=== PATIENT | male | born 1990 | race Caucasian/White ===

== ENCOUNTER 2017-11-05 09:31 | Emergency (ER) | payer SELFPAY ==
--- NOTE | 2017-11-05 09:32 | EDM.PDOC ---
ED HPI GENERAL MEDICAL PROBLEM - General Chief Complaint: Flank Pain Stated Complaint: IN BY AMBULANCE Time Seen by Provider: 11/05/17 09:31 Source of Information: Reports: Patient, EMS, EMS Notes Reviewed, [employer]icker, RN Notes Reviewed History Limitations: Reports: No Limitations - History of Present Illness INITIAL COMMENTS - FREE TEXT/NARRATIVE: Patient presents to ER per [facility] with complaint of left flank pain. Patient states he took 16 (triple C's) last night. Pain began last night left flank. Patient states more of a panic attack than pain. Onset Date: 11/04/17 Duration: Getting Worse Location: Reports: Generalized Quality: Reports: Ache Severity: Severe Improves with: Reports: None Worsens with: Reports: None Associated Symptoms: Reports: No Other Symptoms - Related Data Allergies Allergy/AdvReac Type Severity Reaction Status Date / Time No Known Allergies Allergy Verified 11/05/17 09:35 Home Meds: Home Meds Ibuprofen 1 - 2 tab PO Q6H PRN 03/05/15 [History] Past Medical History - Past Health History Medical/Surgical History: Denies Medical/Surgical History Other Genitourinary History: Patient c/o injury to penis. Social & Family History - Family History Family Medical History: Noncontributory - Tobacco Use Smoking Status *Q: Current Every Day Smoker Years of Tobacco use: 16 Packs/Tins Daily: 1 Second Hand Smoke Exposure: Yes - Alcohol Use Alcohol Use History: No - Recreational Drug Use Recreational Drug Use: Yes Recreational Drug Type: Reports: Marijuana/Hashish ED ROS GENERAL - Review of Systems Review Of Systems: ROS reveals no pertinent complaints other than HPI. ED EXAM, RENAL/ - Physical Exam Exam: See Below Exam Limited By: No Limitations General Appearance: Anxious Eye Exam: Bilateral Eye: Normal Inspection, PERRL (6 and sluggish) Ears: Normal External Exam, Normal Canal, Hearing Grossly Normal, Normal TMs Nose: Normal Inspection, Normal Mucosa, No Blood Throat/Mouth: Normal Inspection, Normal Lips, Normal Teeth, Normal Gums, Normal Oropharynx, Normal Voice, No Airway Compromise Head: Atraumatic, Normocephalic Neck: Normal Inspection, Supple, Non-Tender, Full Range of Motion Respiratory/Chest: No Respiratory Distress, Lungs Clear, Normal Breath Sounds, No Accessory Muscle Use, Chest Non-Tender Cardiovascular: Normal Peripheral Pulses, Regular Rate, Rhythm, No Edema, No Gallop, No JVD, No Murmur, No Rub GI/Abdominal: Normal Bowel Sounds, Soft, Non-Tender, No Organomegaly, No Distention, No Abnormal Bruit, No Mass (Male) Exam: Deferred Rectal (Males) Exam: Deferred Back Exam: Normal Inspection, Full Range of Motion, NT Extremities: Normal Inspection, Normal Range of Motion, Non-Tender, Normal Capillary Refill, No Pedal Edema Neurological: Alert, Oriented Psychiatric: Anxious Skin Exam: Other (tattoos) Lymphatic: No Adenopathy EKG INTERPRETATION EKG Date: 11/05/17 Time: 10:07 Rate (Beats/Min): 99 EKG Interpretation Comments: EKG on 11/05/2017 shows sinus rhythm and borderline prolonged QT interval. Course - Vital Signs Last Recorded V/S: Last Vital Signs Temp 98 F 11/05/17 09:39 Pulse 124 H 11/05/17 09:39 Resp 20 11/05/17 09:39 BP 135/87 11/05/17 09:39 Pulse Ox 96 11/05/17 09:39 - Orders/Labs/Meds Orders: Active Orders 24 hr Category Date Time Status EKG Documentation Completion [RC] STAT Care 11/05/17 10:01 Active Peripheral IV Care [RC] . DIRECTED Care 11/05/17 09:43 Active DRUG SCREEN URINE BIORAD [URCHEM] Stat Lab 11/05/17 11:00 Ordered UA W/MICROSCOPIC [URIN] Stat Lab 11/05/17 11:00 Ordered Sodium Chloride 0.9% [Saline Flush] Med 11/05/17 09:43 Active 10 ml FLUSH ASDIRECTED PRN Peripheral IV Insertion Adult [OM.PC] Stat Oth 11/05/17 09:42 Ordered Medication Orders Sodium Chloride (Saline Flush) 10 ml FLUSH ASDIRECTED PRN PRN Reason: Keep Vein Open Last Admin: 11/05/17 09:58 Dose: 10 ml Labs: Laboratory Tests 11/05/17 11/05/17 11/05/17 Range/Units 09:49 09:49 09:49 WBC 8.1 (5.0-10.0) 10^3/uL RBC 5.38 (4.6-6.2) 10^6/uL Hgb 16.2 (14.0-18.0) g/dL Hct 47.9 (40.0-54.0) % MCV 89.0 (80-100) fL MCH 30.1 (27.0-34.0) pg MCHC 33.8 (33.0-35.0) g/dL Plt Count 188 (150-450) 10^3/uL Neut % (Auto) 66.5 (42.2-75.2) % Lymph % (Auto) 21.4 (20.5-50.1) % [place] % (Auto) 11.4 H (2-8) % Eos % (Auto) 0.5 L (1.0-3.0) % Baso % (Auto) 0.2 (0.0-1.0) % Sodium 134 L (135-145) mmol/L Potassium 4.1 (3.6-5.0) mmol/L Chloride 101 (101-111) mmol/L Carbon Dioxide 25.0 (21.0-31.0) mmol/L Anion Gap 12.1 BUN 7 (7-18) mg/dL Creatinine 0.9 (0.6-1.3) mg/dL Est Cr Clr Drug Dosing 148.66 mL/min Estimated GFR (MDRD) > 60 BUN/Creatinine Ratio 7.77 Glucose 130 H (74-105) mg/dL Calcium 9.1 (8.4-10.2) mg/dl Total Bilirubin 1.1 H (0.2-1.0) mg/dL AST 24 (10-42) IU/L ALT 18 (10-60) IU/L Alkaline Phosphatase 63 (42-121) IU/L Troponin I < 0.02 (0.00-0.02) ng/ml Total Protein 7.6 (6.7-8.2) g/dl Albumin 4.6 (3.2-5.5) g/dl Globulin 3.0 Albumin/Globulin Ratio 1.53 Urine Color (YELLOW) Urine Appearance (CLEAR) Urine pH (5.0-9.0) Ur Specific [place] (1.005-1.030) Urine Protein (NEGATIVE) Urine Glucose (UA) (NEGATIVE) Urine Ketones (NEGATIVE) Urine Occult Blood (NEGATIVE) Urine Nitrite (NEGATIVE) Urine Bilirubin (NEGATIVE) Urine Urobilinogen (0.2-1.0) mg/dL Ur Leukocyte Esterase (NEGATIVE) Urine RBC /HPF Urine WBC (0-5/HPF) /HPF Ur Epithelial Cells /HPF Urine Bacteria (0-FEW/HPF) /HPF Urine Opiates Screen (NEGATIVE) Ur Oxycodone Screen (NEGATIVE) Urine Methadone Screen (NEGATIVE) Ur Barbiturates Screen (NEGATIVE) U Tricyclic Antidepress (NEGATIVE) Ur Phencyclidine Scrn (NEGATIVE) Ur Amphetamine Screen (NEGATIVE) U Methamphetamines Scrn (NEGATIVE) Urine MDMA Screen (NEGATIVE) U Benzodiazepines Scrn (NEGATIVE) Urine Cocaine Screen (NEGATIVE) U Marijuana (THC) Screen (NEGATIVE) Ethyl Alcohol < 5 mg/dL 11/05/17 11/05/17 Range/Units 11:00 11:00 WBC (5.0-10.0) 10^3/uL RBC (4.6-6.2) 10^6/uL Hgb (14.0-18.0) g/dL Hct (40.0-54.0) % MCV (80-100) fL MCH (27.0-34.0) pg MCHC (33.0-35.0) g/dL Plt Count (150-450) 10^3/uL Neut % (Auto) (42.2-75.2) % Lymph % (Auto) (20.5-50.1) % [place] % (Auto) (2-8) % Eos % (Auto) (1.0-3.0) % Baso % (Auto) (0.0-1.0) % Sodium (135-145) mmol/L Potassium (3.6-5.0) mmol/L Chloride (101-111) mmol/L Carbon Dioxide (21.0-31.0) mmol/L Anion Gap BUN (7-18) mg/dL Creatinine (0.6-1.3) mg/dL Est Cr Clr Drug Dosing mL/min Estimated GFR (MDRD) BUN/Creatinine Ratio Glucose (74-105) mg/dL Calcium (8.4-10.2) mg/dl Total Bilirubin (0.2-1.0) mg/dL AST (10-42) IU/L ALT (10-60) IU/L Alkaline Phosphatase (42-121) IU/L Troponin I (0.00-0.02) ng/ml Total Protein (6.7-8.2) g/dl Albumin (3.2-5.5) g/dl Globulin Albumin/Globulin Ratio Urine Color Yellow (YELLOW) Urine Appearance Clear (CLEAR) Urine pH 7.0 (5.0-9.0) Ur Specific [place] 1.015 (1.005-1.030) Urine Protein Negative (NEGATIVE) Urine Glucose (UA) Negative (NEGATIVE) Urine Ketones Negative (NEGATIVE) Urine Occult Blood Negative (NEGATIVE) Urine Nitrite Negative (NEGATIVE) Urine Bilirubin Negative (NEGATIVE) Urine Urobilinogen 0.2 (0.2-1.0) mg/dL Ur Leukocyte Esterase Trace H (NEGATIVE) Urine RBC 0-5 /HPF Urine WBC 0-5 (0-5/HPF) /HPF Ur Epithelial Cells Rare /HPF Urine Bacteria Not seen (0-FEW/HPF) /HPF Urine Opiates Screen Negative (NEGATIVE) Ur Oxycodone Screen Positive H (NEGATIVE) Urine Methadone Screen Negative (NEGATIVE) Ur Barbiturates Screen Negative (NEGATIVE) U Tricyclic Antidepress Negative (NEGATIVE) Ur Phencyclidine Scrn Negative (NEGATIVE) Ur Amphetamine Screen Negative (NEGATIVE) U Methamphetamines Scrn Negative (NEGATIVE) Urine MDMA Screen Negative (NEGATIVE) U Benzodiazepines Scrn Negative (NEGATIVE) Urine Cocaine Screen Negative (NEGATIVE) U Marijuana (THC) Screen Positive H (NEGATIVE) Ethyl Alcohol mg/dL Meds: Medications Generic Name Dose Route Start Last Admin Trade Name Freq PRN Reason Stop Dose Admin Sodium Chloride 10 ml 11/05/17 09:43 11/05/17 09:58 Saline Flush FLUSH 10 ml ASDIRECTED PRN Administration Keep Vein Open Discontinued Medications Generic Name Dose Route Start Last Admin Trade Name Freq PRN Reason Stop Dose Admin Sodium Chloride 1,000 mls @ 999 mls/hr 11/05/17 09:42 11/05/17 09:53 Normal Saline IV 11/05/17 10:42 999 mls/hr .BOLUS ONE Administration Lorazepam 1 mg 11/05/17 09:43 11/05/17 09:57 Ativan IVPUSH 11/05/17 09:44 1 mg ONETIME ONE Administration - Radiology Interpretation Free Text/Narrative:: Portable Chest xray: IMPRESSION: No acute cardiopulmonary abnormality identified. Thank you for allowing us to participate in the care of your patient. Dictated and Authenticated by: Santosh Reveles MD 11/05/2017 10:48 AM Central Time ([place] & [place]) See rad report Departure - Departure Time of Disposition: 11:45 Disposition: Home, Self-Care 01 Condition: Fair Clinical Impression: Drug abuse, Panic attack, Muscle strain - Discharge Information Instructions: Muscle Strain, [id number], Flank Pain, [id number], Opioid Use Disorder, Substance Use Disorder, Cannabis Use Disorder Forms: ED Department Discharge Additional Instructions: Refrain from use of cold/cough/congestion Drink plenty of water Follow up with your primary care facility - My Orders Last 24 Hours: My Active Orders 11/05/17 09:42 Peripheral IV Insertion Adult [OM.PC] Stat 11/05/17 09:43 Peripheral IV Care [RC] . DIRECTED Sodium Chloride 0.9% [Saline Flush] 10 ml FLUSH ASDIRECTED PRN 11/05/17 10:01 EKG Documentation Completion [RC] STAT 11/05/17 11:00 DRUG SCREEN URINE BIORAD [URCHEM] Stat UA W/MICROSCOPIC [URIN] Stat - Assessment/Plan Last 24 Hours: My Active Orders 11/05/17 09:42 Peripheral IV Insertion Adult [OM.PC] Stat 11/05/17 09:43 Peripheral IV Care [RC] . DIRECTED Sodium Chloride 0.9% [Saline Flush] 10 ml FLUSH ASDIRECTED PRN 11/05/17 10:01 EKG Documentation Completion [RC] STAT 11/05/17 11:00 DRUG SCREEN URINE BIORAD [URCHEM] Stat UA W/MICROSCOPIC [URIN] Stat
[2017-11-05 09:40] VITALS: BP 135/87
[2017-11-05] MEDS ORDERED: Sodium Chloride 0.9% 1,000 ML IV ONE (09:42)
[2017-11-05] MEDS ORDERED: Sodium Chloride 0.9% 10 ML Syringe FLUSH PRN (09:43)
[2017-11-05] MEDS ORDERED: LORazepam 2 MG/ML Syringe IVPUSH ONE (09:43)
[2017-11-05 10:21] LABS: CHLORIDE,CL 101 mmol/L (101-111); SODIUM,NA 134 mmol/L (135-145)
--- NOTE | 2017-11-07 13:54 | EKG ---
11/05/2017 - CATRINA JC - EKG, per my reading, shows sinus rhythm at the rate of 99. [facility] /[id number]
== END 2017-11-05 11:55 | disposition home or self-care (01) ==
LOC: DL.ED 09:31
DX: S39.011A Strain of muscle, fascia and tendon of abdomen, initial encounter (principal); F41.0 Panic disorder [episodic paroxysmal anxiety]; F19.10 Other psychoactive substance abuse, uncomplicated; F17.210 Nicotine dependence, cigarettes, uncomplicated; X58.XXXA Exposure to other specified factors, initial encounter
CPT/HCPCS: 36415; 71045; 80053; 80305; 81001; 84484; 85025; 93005; 93010; 96361; 96374; 99285; G0480; J2060; J7030; J7050